=== PATIENT | male | born 1975 | race Caucasian/White ===

== ENCOUNTER 2016-11-07 13:26 | Emergency (ER) | payer OTHER ==
[2016-11-07] MEDS ORDERED: KETOROLAC 60 MG/2 ML VIAL IM STA (13:41)
[2016-11-07] MEDS ORDERED: KETOROLAC 60 MG/2 ML VIAL ONE (13:43)
--- NOTE | 2016-11-07 13:46 | ED Physician Documentation ---
History of Present Illness - Stated complaint Stated Complaint: 6-8FT FALL/BACK/HIP PX - Chief complaint Chief Complaint: Trauma Ch/Bk - History obtained from History obtained from: Patient - History of Present Illness Timing: How many hours ago (1) Pain level max: 8 Pain level now: 8 Quality: aching, dull pain Improved by: rest Worsened by: movement - Additonal information Additional information: Patient is a 41-year-old male who was at work today when he was climbing off of a single-story roof onto a ladder, the ladder slipped and he fell onto a car below the ladder. Then rolled onto the ground. Now has lower back pain as well as left hip pain as well as right elbow pain. Did not strike his head. Did not lose consciousness Review of Systems Constitutional: denies: Fever, Chills Eyes: denies: Photophobia Nose: denies: Rhinorrhea / runny nose, Congestion Throat: denies: Sore throat Cardiac: denies: Chest pain / pressure Respiratory: denies: Cough GI: denies: Nausea, Vomiting, Diarrhea : denies: Dysuria, Frequency, Unable to Void, Incontinent Skin: denies: Rash Musculoskeletal: denies: Neck pain Neurologic: denies: Focal weakness, Numbness, Headache PD PAST MEDICAL HISTORY - Past Medical History Past Medical History: No - Past Surgical History Past Surgical History: Yes - Present Medications Home Medications: Ambulatory Orders Medication Instructions Recorded Confirmed Cyclobenzaprine [Flexeril] 10 mg PO TID PRN #20 tablet 11/07/16 Ibuprofen [Motrin] 800 mg PO Q8H PRN #30 tablet 11/07/16 - Allergies Allergies/Adverse Reactions: Allergies Allergy/AdvReac Type Severity Reaction Status Date / Time penicillamine Allergy Unknown Verified 11/07/16 13:32 - Social History Does the pt smoke?: Yes Smoking Status: Current every day smoker Does the pt drink ETOH?: Yes Does the pt have substance abuse?: No - Immunizations Immunizations are current?: Yes PD ED PE NORMAL - Vitals Vital signs reviewed: Yes - General General: Alert and oriented X 3, No acute distress - HEENT HEENT: Atraumatic, Moist mucous membranes - Neck Neck: Supple, no meningeal sign, No bony TTP - Cardiac Cardiac: RRR - Respiratory Respiratory: No respiratory distress, Clear bilaterally - Abdomen Abdomen: Soft, Non tender - Back Back: Other (mild midline TTP mid L-spine. Mostly paraspinal TTP R>L. + spasm) - Derm Derm: Warm and dry - Extremities Extremities: No deformity, Other (TTP over the R olecranon process. NVI. otherwise normal exam of all 4 extremities.) - Neuro Neuro: Alert and oriented X 3, No motor deficit, No sensory deficit - Psych Psych: Normal mood, Normal affect Results - Vitals Vitals: Vital Signs - 24 hr 11/07/16 11/07/16 13:30 14:55 Temperature 36.5 C Heart Rate 57 L 78 Respiratory 18 13 Rate Blood Pressure 135/87 H 146/78 H O2 Saturation 100 100 Oxygen O2 Source Room air - Rads (name of study) L spine xray Radiology: Prelim report reviewed, EMP read contemporaneously, See rad report ( normal) R elbow xray Radiology: Prelim report reviewed, EMP read contemporaneously, See rad report ( normal) PD MEDICAL DECISION MAKING - ED course Complexity details: reviewed results, re-evaluated patient, considered differential, d/w patient ED course: Patient is a 41-year-old male who presents to the emergency department after falling off of a roof at work today. No acute findings on x-rays. Pain well controlled. Will prescribe pain medication and muscle relaxants for home and follow-up with his doctor. Abdomen remained soft, nontender nondistended. Neck remained nontender. Normal neurological exam. Ambulating well. Patient counseled regarding signs and symptoms for which I believe and urgent re- evaluation would be necessary. Patient with good understanding of and agreement to plan and is comfortable going home at this time This document was made in part using voice recognition software. While efforts are made to proofread this document, sound alike and grammatical errors may occur. Departure - Departure Disposition: 01 Home, Self Care Clinical Impression: Back strain Qualifiers: Encounter type: initial encounter Qualified Code(s): S39.012A - Strain of muscle, fascia and tendon of lower back, initial encounter Elbow contusion Qualifiers: Encounter type: initial encounter Laterality: right Qualified Code(s): S50.01XA - Contusion of right elbow, initial encounter Condition: Good Instructions: ED Low Back Pain Injury Follow-Up: your,doctor in 1 week [Other] Prescriptions: Cyclobenzaprine [Flexeril] 10 mg PO TID PRN #20 tablet PRN Reason: Spasms Ibuprofen [Motrin] 800 mg PO Q8H PRN #30 tablet PRN Reason: PAIN &/OR FEVER Comments: Return if you worsen. Rest for the next few days. Do not drive or operate heavy machinery while taking flexeril. Forms: Activity restrictions Discharge Date/Time: 11/07/16 14:55
--- NOTE | 2016-11-07 14:35 | XRAY Preliminary Report ---
Exam: XR Lumbar Spine 2 View IMPRESSION: Normal lumbar spine radiography. [facility] SITE ID: [id number]
--- NOTE | 2016-11-07 14:36 | XRAY Preliminary Report ---
Exam: XR Elbow 3 View RT IMPRESSION: Normal elbow radiography. [facility] SITE ID: [id number]
--- NOTE | 2016-11-07 14:38 | XRAY Report ---
EXAM: RIGHT ELBOW RADIOGRAPHY EXAM DATE: 11/07/2016 02:10 PM. CLINICAL HISTORY: Fall off ladder, R elbow pain. COMPARISON: None. TECHNIQUE: 3 views. FINDINGS: Bones: Normal. No fractures or bone lesions. Joints: Normal. No effusion. No subluxation. Soft Tissues: Unremarkable. IMPRESSION: Normal elbow radiography. [facility] Referring Provider Line: [phone] SITE ID: [id number]
--- NOTE | 2016-11-07 14:38 | XRAY Report ---
EXAM: LUMBOSACRAL SPINE RADIOGRAPHY EXAM DATE: 11/07/2016 02:11 PM. CLINICAL HISTORY: Fall off ladder, L2-3 pain. COMPARISONS: None. TECHNIQUE: 3 views. FINDINGS: Alignment: Normal. No spondylolisthesis or scoliosis. 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 No fractures or bone lesions. Disks: Normal. Disk heights are maintained. Facets: No degenerative changes. Sacroiliac Joints: Unremarkable. Soft Tissues: Unremarkable. IMPRESSION: Normal lumbar spine radiography. [facility] Referring Provider Line: [phone] SITE ID: [id number]
[2016-11-07 14:55] VITALS: BP 146/78
== END 2016-11-07 14:55 | disposition home or self-care (01) ==
LOC: ED 13:26
DX: S39.012A Strain of muscle, fascia and tendon of lower back, initial encounter (principal); S50.01XA Contusion of right elbow, initial encounter; M25.552 Pain in left hip; W13.2XXA Fall from, out of or through roof, initial encounter; Y93.89 Activity, other specified; Y92.89 Other specified places as the place of occurrence of the external cause; Y99.0 Civilian activity done for income or pay; F17.200 Nicotine dependence, unspecified, uncomplicated
CPT/HCPCS: 1040M; 36415; 72100; 73080; 96372; 99283; 99284